=== PATIENT | male | born 1990 ===

== ENCOUNTER 2018-12-20 08:57 | Emergency (ER) | payer SELFPAY ==
[2018-12-20] MEDS ORDERED: Sodium Chloride 0.9% 1,000 ML IV ONE (09:05)
--- NOTE | 2018-12-20 09:09 | EDM.PDOC ---
ED HPI GENERAL MEDICAL PROBLEM - General Chief Complaint: Back Pain or Injury Stated Complaint: BACK PAIN Time Seen by Provider: 12/20/18 08:59 - History of Present Illness INITIAL COMMENTS - FREE TEXT/NARRATIVE: HISTORY AND PHYSICAL: History of present illness: Patient's a 28-year-old male with history of non-insulin dependent diabetes and hypertension presents with concern of upper back pain this is mid scapular radiation to his chest he also complains of some arm discomfort bilaterally he equivocates return shortness of breath is been no nausea vomiting palpitations or diaphoresis. He denies incontinence or retention bowel or bladder numbness or weakness inferiorly. Review of systems: As per history of present illness and below otherwise all systems reviewed and negative. Past medical history: As per history of present illness and as reviewed below otherwise noncontributory. Surgical history: As per history of present illness and as reviewed below otherwise noncontributory. Social history: No reported history of drug or alcohol abuse. Family history: As per history of present illness and as reviewed below otherwise noncontributory. Physical exam: HEENT: Atraumatic, normocephalic, pupils reactive, negative for conjunctival pallor or scleral icterus, mucous membranes moist, throat clear, neck supple, nontender, trachea midline. Lungs: Clear to auscultation, breath sounds equal bilaterally, chest nontender. Heart: S1S2, regular, negative for clicks, rubs, or JVD. Abdomen: Soft, nondistended, nontender. Negative for masses or hepatosplenomegaly. Negative for costovertebral tenderness. Pelvis: Stable nontender. Genitourinary: Deferred. Rectal: Deferred. Extremities: Atraumatic, negative for cords or calf pain. Neurovascular unremarkable. Neuro: Awake, alert, oriented. Cranial nerves II through XII unremarkable. Cerebellum unremarkable. Motor and sensory unremarkable throughout. Exam nonfocal. Diagnostics: CBC CMP troponin PT/INR UA urine drug screen EKG CTA chest with thoracic reconstruction Therapeutics: Saline 1 L bolus segment producer Impression: #1 upper back/chest pain #2 history of diabetes #3 history of hypertension Definitive disposition and diagnosis as appropriate pending reevaluation and review of above. - Related Data Allergies Allergy/AdvReac Type Severity Reaction Status Date / Time codeine Allergy Other Verified 12/20/18 09:48 Home Meds: Home Meds Albuterol Sulfate [Proair Respiclick] 2 puff INH Q6HR 12/20/18 [History] Albuterol/Ipratropium [DuoNeb 3.0-0.5 MG/3 ML] 1 dose INH Q8HR PRN 12/20/18 [ History] Ramipril 5 mg PO DAILY 12/20/18 [History] metFORMIN [Glucophage] 250 mg PO BID 12/20/18 [History] ED ROS GENERAL - Review of Systems Review Of Systems: ROS reveals no pertinent complaints other than HPI. ED EXAM, GENERAL - Physical Exam Exam: See Below (See dictation) Course - Vital Signs Last Recorded V/S: Last Vital Signs Temp 35.8 C 12/20/18 09:06 Pulse 71 12/20/18 09:06 Resp 18 12/20/18 09:06 BP 155/102 H 12/20/18 09:06 Pulse Ox 96 12/20/18 09:06 - Orders/Labs/Meds Orders: Active Orders 24 hr Category Date Time Status EKG Documentation Completion [RC] STAT Care 12/20/18 09:03 Active DRUG SCREEN, URINE [URCHEM] Stat Lab 12/20/18 09:04 Ordered UA RFX YANIV AND CULT IF INDIC [URIN] Stat Lab 12/20/18 09:04 Ordered Labs: Laboratory Tests 12/20/18 12/20/18 12/20/18 Range/Units 09:13 09:13 09:13 WBC 7.26 (4.0-11.0) K/uL RBC 5.77 (4.50-5.90) M/uL Hgb 16.6 (13.0-17.0) g/dL Hct 48.5 (38.0-50.0) % MCV 84.1 (80.0-98.0) fL MCH 28.8 (27.0-32.0) pg MCHC 34.2 (31.0-37.0) g/dL RDW Std Deviation 38.4 (28.0-62.0) fl RDW Coeff of Kory 13 (11.0-15.0) % Plt Count 247 (150-400) K/uL MPV 10.10 (7.40-12.00) fL Add Manual Diff YES Neutrophils % (Manual) 59 (48.0-80.0) % Lymphocytes % (Manual) 31 (16.0-40.0) % Monocytes % (Manual) 9 (0.0-15.0) % Eosinophils % (Manual) 1 (0.0-7.0) % Nucleated RBC % 0.0 /100WBC Absolute Seg Neuts 4.3 (1.4-5.7) Lymphocytes # (Manual) 2.3 (0.6-2.4) Monocytes # (Manual) 0.7 (0.0-0.8) Eosinophils # (Manual) 0.1 (0.0-0.7) Nucleated RBCs # 0 K/uL Reactive Lymphocytes FEW INR 0.95 Sodium 138 (136-148) mmol/L Potassium 3.7 (3.5-5.1) mmol/L Chloride 100 (98-107) mmol/L Carbon Dioxide 29.5 (21.0-32.0) mmol/L BUN 12 (7.0-18.0) mg/dL Creatinine 0.9 (0.8-1.3) mg/dL Est Cr Clr Drug Dosing 126.17 mL/min Estimated GFR (MDRD) > 60.0 ml/min Glucose 326 H (74-106) mg/dL Calcium 9.4 (8.5-10.1) mg/dL Total Bilirubin 0.4 (0.2-1.0) mg/dL AST 18 (15-37) IU/L ALT 42 (14-63) IU/L Alkaline Phosphatase 62 (46-116) U/L Troponin I < 0.050 (0.000-0.056) ng/mL Total Protein 7.5 (6.4-8.2) g/dL Albumin 3.8 (3.4-5.0) g/dL Globulin 3.7 (2.6-4.0) g/dL Albumin/Globulin Ratio 1.0 (0.9-1.6) Meds: Medications Discontinued Medications Generic Name Dose Route Start Last Admin Trade Name Freq PRN Reason Stop Dose Admin Sodium Chloride 1,000 mls @ 999 mls/hr 12/20/18 09:05 12/20/18 09:19 Normal Saline IV 12/20/18 10:05 999 mls/hr STAT ONE Administration Iopamidol 100 ml 12/20/18 09:30 12/20/18 10:03 Isovue Multipack-370 (76%) IVPUSH 12/20/18 09:31 100 ml ONETIME STA Administration Iopamidol 100 ml 12/20/18 09:55 Isovue Multipack-370 (76%) IVPUSH 12/20/18 09:56 ONETIME STA Departure - Departure Time of Disposition: 11:47 Disposition: Home, Self-Care 01 Condition: Good Clinical Impression: Back pain, History of diabetes mellitus, type II, Hypertension - Discharge Information Referrals: PCP,Unknown [Primary Care Provider] - Forms: ED Department Discharge Additional Instructions: The following information is given to patients seen in the emergency department who are being discharged to home. This information is to outline your options for follow-up care. We provide all patients seen in our emergency department with a follow-up referral. The need for follow-up, as well as the timing and circumstances, are variable depending upon the specifics of your emergency department visit. If you don't have a primary care physician on staff, we will provide you with a referral. We always advise you to contact your personal physician following an emergency department visit to inform them of the circumstance of the visit and for follow-up with them and/or the need for any referrals to a consulting specialist. The emergency department will also refer you to a specialist when appropriate. This referral assures that you have the opportunity for followup care with a specialist. All of these measure are taken in an effort to provide you with optimal care, which includes your followup. Under all circumstances we always encourage you to contact your private physician who remains a resource for coordinating your care. When calling for followup care, please make the office aware that this follow-up is from your recent emergency room visit. If for any reason you are refused follow-up, please contact the [facility] emergency department at and asked to speak to the emergency department charge nurse. Continue current medications follow-up primary medical doctor as needed as discussed Motrin/Tylenol as directed return as needed as discussed [] - My Orders Last 24 Hours: My Active Orders 12/20/18 09:03 EKG Documentation Completion [RC] STAT 12/20/18 09:04 DRUG SCREEN, URINE [URCHEM] Stat UA RFX YANIV AND CULT IF INDIC [URIN] Stat - Assessment/Plan Last 24 Hours: My Active Orders 12/20/18 09:03 EKG Documentation Completion [RC] STAT 12/20/18 09:04 DRUG SCREEN, URINE [URCHEM] Stat UA RFX YANIV AND CULT IF INDIC [URIN] Stat
[2018-12-20] MEDS ORDERED: Iopamidol 755 MG/ML 500 ML Multipack Bottle IVPUSH STA ×2 (09:30→09:55)
[2018-12-20 09:48] LABS: CHLORIDE,CL 100 mmol/L (98-107); SODIUM,NA 138 mmol/L (136-148)
--- NOTE | 2018-12-20 11:00 | CT ---
INDICATION: Shortness of breath. Upper back pain. Evaluate for dissection. TECHNIQUE: CT angio of the chest, abdomen, and pelvis with 100 cc of Isovue-370 given intravenously. FINDINGS: Chest: No aneurysmal dilatation or dissection of the thoracic aorta. No pulmonary emboli. No mediastinal or hilar adenopathy. No axillary adenopathy. The lungs show minimal dependent atelectasis. No pneumothorax. Abdomen and pelvis: No aneurysmal dilatation or dissection of the abdominal aorta or aortic branch vessels. No focal abnormalities identified in the visualized portions of the liver, spleen, pancreas, adrenal glands, and kidneys. No hydronephrosis. The visualized portions of the GI tract are incompletely distended but show no gross abnormalities. The stomach and GE junction are not well assessed. Normal appendix. No retroperitoneal or mesenteric adenopathy. The lower portion of the pelvis is not included. No evidence of acute fracture or dislocation. IMPRESSION: 1. No aneurysmal dilatation or dissection of the aorta. 2. No pulmonary emboli. 3. No acute abnormalities of the abdomen or upper pelvis identified. Dictated by Phillip Burnett MD @ 12/20/2018 10:59:42 AM Dictated by: Phillip Burnett MD @ 12/20/2018 11:00:03 (Electronically Signed)
--- NOTE | 2018-12-20 11:00 | CT ---
INDICATION: Shortness of breath. Upper back pain. Evaluate for dissection. TECHNIQUE: CT angio of the chest, abdomen, and pelvis with 100 cc of Isovue-370 given intravenously. FINDINGS: Chest: No aneurysmal dilatation or dissection of the thoracic aorta. No pulmonary emboli. No mediastinal or hilar adenopathy. No axillary adenopathy. The lungs show minimal dependent atelectasis. No pneumothorax. Abdomen and pelvis: No aneurysmal dilatation or dissection of the abdominal aorta or aortic branch vessels. No focal abnormalities identified in the visualized portions of the liver, spleen, pancreas, adrenal glands, and kidneys. No hydronephrosis. The visualized portions of the GI tract are incompletely distended but show no gross abnormalities. The stomach and GE junction are not well assessed. Normal appendix. No retroperitoneal or mesenteric adenopathy. The lower portion of the pelvis is not included. No evidence of acute fracture or dislocation. IMPRESSION: 1. No aneurysmal dilatation or dissection of the aorta. 2. No pulmonary emboli. 3. No acute abnormalities of the abdomen or upper pelvis identified. Dictated by Phillip Burnett MD @ 12/20/2018 10:58:34 AM Dictated by: Phillip Burnett MD @ 12/20/2018 10:58:53 (Electronically Signed)
--- NOTE | 2018-12-20 11:04 | CT ---
INDICATION: Upper back pain. TECHNIQUE: CT scan of the thoracic spine re-formatted from a CT scan of the chest, abdomen, and pelvis. FINDINGS: Normal height and alignment of the thoracic vertebral bodies. No evidence of acute fracture or dislocation. Mild multilevel endplate irregularity in the mid and lower thoracic spine. No other bony or soft tissue abnormalities identified. Impression : 1. No evidence of acute fracture or dislocation of the thoracic spine. Dictated by Phillip Burnett MD @ 12/20/2018 11:03:16 AM Dictated by: Phillip Burnett MD @ 12/20/2018 11:03:29 (Electronically Signed)
== END 2018-12-20 12:46 | disposition home or self-care (01) ==
LOC: MW.ED 08:57
DX: M54.6 Pain in thoracic spine (principal); R07.9 Chest pain, unspecified; I10 Essential (primary) hypertension; E11.9 Type 2 diabetes mellitus without complications; Z88.5 Allergy status to narcotic agent; Z79.84 Long term (current) use of oral hypoglycemic drugs; Z79.899 Other long term (current) drug therapy
CPT/HCPCS: 36415; 71275; 74175; 80053; 84484; 85025; 85610; 93005; 96360; 96361; 99284; J7040; Q9967; 72128-26; 99283

== ENCOUNTER 2020-05-12 09:57 | Emergency (ER) | payer SELFPAY ==
[2020-05-12 11:05] LABS: BLOOD UREA NITROGEN,BUN 18 mg/dL (7.0-18.0); CHLORIDE,CL 100 mmol/L (98-107); GLUCOSE RANDOM 288 mg/dL (74-106); POTASSIUM,K 4.5 mmol/L (3.5-5.1); SODIUM,NA 137 mmol/L (136-148)
--- NOTE | 2020-05-12 11:27 | EDM.PDOC ---
ED HPI GENERAL MEDICAL PROBLEM - General Chief Complaint: Genitourinary Problem Stated Complaint: URINE ISSUES Time Seen by Provider: 05/12/20 10:02 Source of Information: Reports: Patient History Limitations: Reports: No Limitations - History of Present Illness INITIAL COMMENTS - FREE TEXT/NARRATIVE: HISTORY AND PHYSICAL: History of present illness: Patient is a 29-year-old male who presents emergency room today with concern of possible urinary tract infection. Patient states that he has a "odd "sensation when he urinates but states that it is not painful. Patient states he is also having low back pain off and on but is not currently having low back pain at that it could be related to a urinary tract infection. Patient states he has a history of type 2 diabetes and is supposed to be taking Metformin but he has been out of his prescription and does not have any refills for several months. Patient states that he has an appointment on Thursday with his primary care provider to get his Metformin refilled. Patient denies any other symptoms or concerns. Patient states that he is with only one sexual partner for several years but is not sure if the sexual partner is faithful. Patient denies any penile drainage or scrotal tenderness. Patient denies fever, chills, chest pain, shortness of breath, or cough. Denies headache, neck stiff ness, change in vision, syncope, or near syncope. Denies nausea, vomiting, abdominal pain, diarrhea, constipation. Has not noted any blood in urine or stool. Patient has been eating and drinking appropriately. Review of systems: As per history of present illness and below otherwise all systems reviewed and negative. Past medical history: As per history of present illness and as reviewed below otherwise noncontributo ry. Surgical history: As per history of present illness and as reviewed below otherwise noncontributory. Social history: See social history for further information Family history: As per history of present illness and as reviewed below otherwise noncontributory. Physical exam: General: Patient is alert, oriented, and in no acute distress. Patient sitting comfortably on exam table. Vitals stable and reviewed by me. HEENT: Atraumatic, normocephalic, pupils equal and reactive bilaterally, negative for conjunctival pallor or scleral icterus, mucous membranes moist, TMs normal bilaterally, throat clear, neck supple, nontender, trachea midline. No drooling or trismus noted. No meningeal signs. No hot potato voice noted. Lungs: Clear to auscultation, breath sounds equal bilaterally, chest nontender. Heart: S1S2, regular rate and rhythm without overt murmur Abdomen: Soft, nondistended, nontender. Negative for masses or hepatosplenomegaly. Negative for costovertebral tenderness. Pelvis: Stable nontender. Genitourinary: Deferred. Rectal: Deferred. Skin: Intact, warm, dry. No lesions or rashes noted. Extremities: Atraumatic, negative for cords or calf pain. Neurovascular unremarkable. Neuro: Awake, alert, oriented. Cranial nerves II through XII unremarkable. Cerebellum unremarkable. Motor and sensory unremarkable throughout. Exam nonfocal. Notes: Patient does have an elevated glucose reading today and states that he is out of his Metformin prescription. I will refill his Metformin prescription until he is able to be seen by his primary care provider that he has scheduled on Thursday this week. Signs and symptoms that were prompt return to the ED thoroughly discussed with patient. Discussed importance for follow-up with a primary care provider. Voices understanding and is agreeable to plan of care. Denies any further questions or concerns at this time. Diagnostics: UA, gonorrhea and chlamydia, CBC, CMP Therapeutics: None Prescription: Metformin Impression: Dysuria Hyperglycemia Type 2 diabetes, non insulin dependent Plan: 1. Take medication as prescribed. You can alternate ibuprofen and Tylenol as directed for pain and discomfort. 2. Follow-up with your primary care provider as scheduled and as discussed. Return to the ED as needed and as discussed. Definitive disposition and diagnosis as appropriate pending reevaluation and review of above. left groin Pain Score (Numeric/FACES): 4 - Related Data Allergies Allergy/AdvReac Type Severity Reaction Status Date / Time codeine Allergy Other Verified 05/12/20 10:18 Home Meds: Home Meds Albuterol Sulfate [Proair Respiclick] 2 puff INH Q6HR 12/20/18 [History] Albuterol/Ipratropium [DuoNeb 3.0-0.5 MG/3 ML] 1 dose INH Q8HR PRN 12/20/18 [History] metFORMIN [Glucophage] 250 mg PO BID 12/20/18 [History] ramipriL [Ramipril] 5 mg PO DAILY 12/20/18 [History] Past Medical History HEENT History: Reports: None Cardiovascular History: Reports: Hypertension Respiratory History: Reports: Asthma Gastrointestinal History: Reports: None Genitourinary History: Reports: None Musculoskeletal History: Reports: None Neurological History: Reports: None Psychiatric History: Reports: None Endocrine/Metabolic History: Reports: Diabetes, Type II Hematologic History: Reports: None Immunologic History: Reports: None Oncologic (Cancer) History: Reports: None Dermatologic History: Reports: None - Infectious Disease History Infectious Disease History: Reports: None - Past Surgical History Head Surgeries/Procedures: Reports: None HEENT Surgical History: Reports: None Cardiovascular Surgical History: Reports: None Respiratory Surgical History: Reports: None GI Surgical History: Reports: None Male Surgical History: Reports: None Endocrine Surgical History: Reports: None Neurological Surgical History: Reports: None Musculoskeletal Surgical History: Reports: None Oncologic Surgical History: Reports: None Dermatological Surgical History: Reports: None Social & Family History - Family History Family Medical History: No Pertinent Family History - Caffeine Use Caffeine Use: Reports: Coffee, Energy Drinks - Recreational Drug Use Recreational Drug Use: No ED ROS GENERAL - Review of Systems Review Of Systems: Comprehensive ROS is negative, except as noted in HPI. ED EXAM, GENERAL - Physical Exam Exam: See Below (see dictation) Course - Vital Signs Last Recorded V/S: Last Vital Signs Temp 95.4 F L 05/12/20 10:08 Pulse 81 05/12/20 10:08 Resp 17 05/12/20 10:08 BP 133/93 H 05/12/20 10:08 Pulse Ox 95 05/12/20 10:08 - Orders/Labs/Meds Orders: Active Orders 24 hr Category Date Time Status CHLAMYDIA AND GONORRHEA BY TMA Stat Lab 05/12/20 10:32 Received Labs: Laboratory Tests 05/12/20 05/12/20 05/12/20 Range/Units 10:32 10:37 10:37 WBC 8.16 (4.0-11.0) K/uL RBC 5.70 (4.50-5.90) M/uL Hgb 16.5 (13.0-17.0) g/dL Hct 48.8 (38.0-50.0) % MCV 85.6 (80.0-98.0) fL MCH 28.9 (27.0-32.0) pg MCHC 33.8 (31.0-37.0) g/dL RDW Std Deviation 38.9 (28.0-62.0) fl RDW Coeff of Kory 13 (11.0-15.0) % Plt Count 259 (150-400) K/uL MPV 10.70 (7.40-12.00) fL Neut % (Auto) 70.7 (48.0-80.0) % Lymph % (Auto) 21.6 (16.0-40.0) % [place] % (Auto) 6.1 (0.0-15.0) % Eos % (Auto) 1.5 (0.0-7.0) % Baso % (Auto) 0.1 (0.0-1.5) % Neut # (Auto) 5.8 H (1.4-5.7) K/uL Lymph # (Auto) 1.8 (0.6-2.4) K/uL [place] # (Auto) 0.5 (0.0-0.8) K/uL Eos # (Auto) 0.1 (0.0-0.7) K/uL Baso # (Auto) 0.0 (0.0-0.1) K/uL Nucleated RBC % 0.0 /100WBC Nucleated RBCs # 0 K/uL Sodium 137 (136-148) mmol/L Potassium 4.5 (3.5-5.1) mmol/L Chloride 100 (98-107) mmol/L Carbon Dioxide 26.0 (21.0-32.0) mmol/L BUN 18 (7.0-18.0) mg/dL Creatinine 0.9 (0.8-1.3) mg/dL Est Cr Clr Drug Dosing 125.05 mL/min Estimated GFR (MDRD) > 60.0 ml/min Glucose 288 H (74-106) mg/dL Calcium 9.3 (8.5-10.1) mg/dL Total Bilirubin 0.4 (0.2-1.0) mg/dL AST 19 (15-37) IU/L ALT 57 (14-63) IU/L Alkaline Phosphatase 68 (46-116) U/L Total Protein 7.9 (6.4-8.2) g/dL Albumin 3.9 (3.4-5.0) g/dL Globulin 4.0 (2.6-4.0) g/dL Albumin/Globulin Ratio 1.0 (0.9-1.6) Urine Color YELLOW Urine Appearance CLEAR Urine pH 5.0 (5.0-8.0) Ur Specific [place] 1.025 (1.001-1.035) Urine Protein NEGATIVE (NEGATIVE) mg/dL Urine Glucose (UA) >=1000 (NEGATIVE) mg/dL Urine Ketones 15 H (NEGATIVE) mg/dL Urine Occult Blood NEGATIVE (NEGATIVE) Urine Nitrite NEGATIVE (NEGATIVE) Urine Bilirubin NEGATIVE (NEGATIVE) Urine Urobilinogen 0.2 (<2.0) EU/dL Ur Leukocyte Esterase NEGATIVE (NEGATIVE) Departure - Departure Time of Disposition: 11:27 Disposition: Home, Self-Care 01 Clinical Impression: Hyperglycemia, Dysuria, History of diabetes mellitus, type II - Discharge Information Instructions: Hyperglycemia, [id number], Dysuria, Blood Glucose Monitoring, Adult Referrals: PCP,Not In Area [Primary Care Provider] - Forms: ED Department Discharge Additional Instructions: The following information is given to patients seen in the emergency department who are being discharged to home. This information is to outline your options for follow-up care. We provide all patients seen in our emergency department with a follow-up referral. The need for follow-up, as well as the timing and circumstances, are variable depending upon the specifics of your emergency department visit. If you don't have a primary care physician on staff, we will provide you with a referral. We always advise you to contact your personal physician following an emergency department visit to inform them of the circumstance of the visit and for follow-up with them and/or the need for any referrals to a consulting specialist. The emergency department will also refer you to a specialist when appropriate. This referral assures that you have the opportunity for follow-up care with a specialist. All of these measure are taken in an effort to provide you with optimal care, which includes your follow-up. Under all circumstances we always encourage you to contact your private physician who remains a resource for coordinating your care. When calling for follow-up care, please make the office aware that this follow-up is from your recent emergency room visit. If for any reason you are refused follow-up, please contact the [facility] Emergency Department at and asked to speak to the emergency department charge nurse. [facility] [address] [place] [address] [facility] [address] [place] [address] 1. Take medication as prescribed. You can alternate ibuprofen and Tylenol as directed for pain and discomfort. 2. Follow-up with your primary care provider as scheduled and as discussed. Return to the ED as needed and as discussed. Sepsis Event Note (ED) - Evaluation Sepsis Screening Result: No Definite Risk - Focused Exam Vital Signs: Vital Signs Temp Pulse Resp BP Pulse Ox 05/12/20 10:08 95.4 F L 81 17 133/93 H 95 - My Orders Last 24 Hours: My Active Orders 05/12/20 10:32 CHLAMYDIA AND GONORRHEA BY TMA Stat - Assessment/Plan Last 24 Hours: My Active Orders 05/12/20 10:32 CHLAMYDIA AND GONORRHEA BY TMA Stat
[2020-05-15 11:06] LABS: C.TRACHOMATIS BY TMA Positive (Negative); N.GONORRHOEAE BY TMA Negative (Negative)
== END 2020-05-12 11:39 | disposition home or self-care (01) ==
LOC: MW.ED 09:57
DX: R30.0 Dysuria (principal); E11.65 Type 2 diabetes mellitus with hyperglycemia; I10 Essential (primary) hypertension; J45.909 Unspecified asthma, uncomplicated; Z88.5 Allergy status to narcotic agent; Z79.84 Long term (current) use of oral hypoglycemic drugs; Z79.899 Other long term (current) drug therapy
CPT/HCPCS: 36415; 80053; 81003; 85025; 87491; 87591; 99283